=== PATIENT | male | born 1965 | race African-American/Black ===

== ENCOUNTER 2018-11-10 11:17 | Inpatient (IN) | payer OTHER, SELFPAY ==
[2018-11-10 13:48] VITALS: BMI 34.3
[2018-11-10] MEDS ORDERED: Acetaminophen 325 MG TAB PO PRN (13:55)
[2018-11-10] MEDS ORDERED: cloNIDine 0.1 MG TAB PO PRN (15:36)
[2018-11-10] MEDS ORDERED: Ipratropium Oral Inhaler (200 INHALATIONS) INH PRN (15:38)
[2018-11-10 16:25] LABS: Troponin I 0.229 ng/mL (< 0.028)
[2018-11-10] MEDS ORDERED: Lisinopril 20 MG TAB PO SCH (16:30)
[2018-11-10] MEDS ORDERED: Furosemide 40 MG/4 ML VIAL SLOW IVP SCH (19:45)
[2018-11-10 20:16] LABS: Troponin I 0.232 ng/mL (< 0.028)
--- NOTE | 2018-11-10 20:29 | CON ---
DATE OF CONSULT: 11/10/18 Patient is an unfortunate 53-year-old gentleman who presents with increasing dyspnea. He states that he has previously had a history of hypertension. Several years ago he was in [place] and developed congestive heart failure. He was on blood pressure medication for a while and lost a great deal of weight. He was doing well until recently when he noted increasing lower extremity swelling. He became progressively short of breath. He presented to the Emergency Room with marked dyspnea. The patient denied having any chest discomfort. PAST MEDICAL HISTORY: 1. Congestive heart failure. 2. Hypertension. 3. Dyslipidemia. PAST SURGICAL HISTORY: Knee surgery. SOCIAL HISTORY: She is a nonsmoker. FAMILY HISTORY: Positive family history of heart disease. Father with coronary artery disease. ALLERGIES: No known drug allergies. MEDICATIONS: None. REVIEW OF SYSTEMS: Ten point system otherwise unremarkable. No history of easy bruising or bleeding. PHYSICAL EXAMINATION: GENERAL: This is am obese gentleman in mild distress with a blood pressure of 149/101. NECK: Full. LUNGS: Crackles in both lung dozier. . HEART: Irregular rate and rhythm. Normal S1 and S2. ABDOMEN: Distended. EXTREMITIES: Severe bilateral edema. VASCULAR: Radial pulses are 2+. LABORATORY RESULTS: Hemoglobin 15.0, hematocrit 47.3, WBC 7.4, platelets 309. BNP 976. Sodium 144, potassium 4.4, chloride 110, bicarbonate 28, BUN 28, creatinine 0.9. EKG reveals normal sinus rhythm. Nonspecific ST abnormality. IMPRESSION: 1. Congestive heart failure. 2. Cardiomyopathy. 3. Dyslipidemia. 4. Obesity. This gentleman presents with new onset congestive heart failure. The patient has poorly controlled hypertension. The patient will be started on Coreg. Would also recommend the patient be placed on Entresto. The patient will be given Lasix and Spironolactone . An echocardiogram will be obtained. We will follow this patient with you through his hospitalization. [place]
[2018-11-10] MEDS ORDERED: Atorvastatin Calcium 20 MG TAB PO SCH (21:00)
--- NOTE | 2018-11-10 21:11 | HP ---
CHIEF COMPLAINT: Shortness of breath. HISTORY OF PRESENT ILLNESS: The patient is a very pleasant 53-year-old male with a remote history of hypertension about 3 years ago, currently not on any medication, who presented to the hospital with worsening shortness of breath. The patient stated that he has noted his symptoms have gradually gotten worse for the past few months. The patient stated that initially around July or August, he noticed that he was very dyspneic on exertion, which is not like himself. The patient attributed this to some weight gain over the holiday season. The patient stated that recently, about 2 weeks ago, he has been complaining of some nasal congestion with some cough, which he feels has just not gotten better. The patient denies any fevers or chills. He denies any nausea, vomiting, or diarrhea. However, the patient has noticed for the past couple of weeks, increased lower extremity edema and also shortness of breath on minimal exertion. The patient states that he normally sleeps in a chair that is at baseline. The patient's states that he also snores at times. The patient was supposed to be on antihypertensives; however, 3 years ago, he was very cautious about his diet and lost a significant amount of weight, which normalized his pressure. At this time, the patient took himself off the blood pressure medications. The patient stated that he had a stress test about 3 years ago in [place], which he was told it was negative. The patient comes in today with worsening shortness of breath on minimal exertion, also worsening lower extremity edema, which he normally never has. He is positive for PND, but negative for orthopnea. He has been taking [id number]-[id number] medications for his congestion that has been going on for the past 2 weeks. He also states that his appetite has decreased dramatically. He on minimal food intake, he feels very bloated and has not been eating very much for the past couple of weeks. PAST MEDICAL HISTORY: He has a history of hypertension, which he was on antihypertensives, but has not taken it for the past 3 years. PAST SURGICAL HISTORY: He had bilateral knee replacement. SOCIAL HISTORY: The patient denies any smoking or any occasional alcohol use. No drug use. The patient works and he is currently a full code. Lives with his family. ALLERGIES: HE HAS NO KNOWN DRUG ALLERGIES. MEDICATIONS: He takes none. FAMILY HISTORY: His father had a heart attack at the age of 60. REVIEW OF SYSTEMS: All negative except for the ones mentioned above in the HPI. PHYSICAL EXAMINATION: VITAL SIGNS: As of the following; temperature of 97.4, heart rate of 110, 94% on 2 L, and his blood pressure is 153/103. GENERAL: He is awake, alert, and oriented x3. Does not appear in distress. CV: S1 and S2 present. No murmurs, rubs, or gallops. LUNGS: Clear to auscultation. No rhonchi or wheezes noted. ABDOMEN: Obese. Bowel sounds are present x2. EXTREMITIES: Lower extremity edema, +2 lower extremity pitting edema. NEUROVASCULAR: Neurovascular-figueroa, no focal deficits noted. SKIN: No cuts, lesions, or bruises noted. HEENT: Normocephalic and atraumatic. No lymphadenopathy noted. Mucous membranes are moist. The pupils are equal and reactive to light. LABORATORY DATA: His laboratory results that was done at the outside hospital was as of the following; his white count was 7.4, hemoglobin of 15.0, hematocrit 47.3, and platelets were 309. His BNP was 976. His D-dimer was mildly elevated at 462 and the cutoff is 400. Sodium of 144, potassium of 4.4, creatinine 0.9, BUN of 14, and chloride of 110. Chest x-ray showed some mild pulmonary congestion. He did have an influenza swab at the other place; however, I do not have the results for that. ASSESSMENT AND PLAN: The patient is a very pleasant 53-year-old male, who presents to the hospital with worsening shortness of breath. 1. Shortness of breath. This could most likely be heart failure, unclear if it is diastolic versus systolic. We will order an echocardiogram for this patient. We will start the patient on some IV Lasix daily. We will consult Cardiology. Also, we will trend troponins. His EKG had some nonspecific T-wave changes to his lateral leads. However, the patient currently is not having any chest pain. 2. Hypertension, uncontrolled. His blood pressure is 153/103. We will put him on some antihypertensives and continue to monitor. 3. Obesity. I have educated him on weight loss and diet and exercise. 4. Deep venous thrombosis prophylaxis. We will put the patient on some sequential compression devices. Job ID: [id number]
[2018-11-11 00:21] LABS: Troponin I 0.268 ng/mL (< 0.028)
[2018-11-11] MEDS ORDERED: Benzonatate 100 MG CAP PO PRN (01:25)
[2018-11-11 05:13] LABS: #Basophils 0.1 thou/uL (0.0-0.2); #Monocytes 0.8 thou/uL (0.11-0.59); #Neutrophils 6.5 thou/uL (1.40-6.50); %Basophils 0.7 % (0.0-1.0); %Eosinophils 0.3 % (0.0-10.0); %Lymphocytes 21.2 % (21.0-51.0); %Monocytes 8.2 % (0.0-10.0); %Neutrophils 69.6 % (42.0-75.0); Mean Corpuscular HGB CONC 30.9 g/dL (32.0-36.0); Mean Corpuscular Hemoglobin 29.1 pg (27.0-31.0); Mean Corpuscular Volume 94.2 fL (78.0-98.0); Mean Platelet Volume 7.5 fL (7.4-10.4); Platelet Count 316 thou/uL (130-400); RBC Distribution Width 13.8 % (11.5-14.5); Red Blood Cell (RBC) Count 5.14 mill/uL (4.70-6.10); White Blood Cell (WBC) Count 9.3 thou/uL (4.8-10.8)
[2018-11-11 05:40] LABS: Anion Gap 13 mmol/L (10-20); BUN (Urea Nitrogen) 15 mg/dL (8.4-25.7); Calc. Creatinine Clearance 135 mL/min (70-130); Calcium 8.9 mg/dL (7.8-10.44); Carbon Dioxide 26 mmol/L (22-29); Cardiac Risk 8.1 (Less than 4.5); Chloride 104 mmol/L (98-107); Cholesterol 226 mg/dl (< 200 Desired); Estimated GFR-MDRD Greater than 90; Glucose 98 mg/dL (70-105); HDL Cholesterol 28 mg/dL (>60 Neg Risk); LDL Cholesterol, Calculated 176 mg/dL; Potassium 3.4 mmol/L (3.5-5.1); Sodium 140 mmol/L (136-145); Triglycerides 108 mg/dL (Less than 150)
[2018-11-11] MEDS: Furosemide 40 MG/4 ML VIAL SLOW IVP SCH ×2 (06:17→14:19)
[2018-11-11] MEDS ORDERED: Sodium Chloride 0.65% Nasal 44 ML BOT EA NARE PRN (07:31)
[2018-11-11] MEDS ORDERED: Senokot S 8.6-50 MG TAB PO PRN (07:31)
[2018-11-11] MEDS ORDERED: Loratadine 10 MG TAB PO PRN (07:31)
[2018-11-11] MEDS ORDERED: Cepastat Lozenges 1 LOZ PO PRN (07:31)
[2018-11-11] MEDS ORDERED: Loperamide HCl 2 MG CAP PO PRN (07:31)
[2018-11-11] MEDS ORDERED: hydrALAZINE 20 MG/ML VIAL SLOW IVP PRN (07:31)
[2018-11-11] MEDS ORDERED: Artificial Tears 18 DROP/0.9 ML EA EYE PRN (07:31)
[2018-11-11] MEDS ORDERED: Bisacodyl 10 MG SUPP PR PRN (07:31)
[2018-11-11] MEDS ORDERED: Eucerin (Mineral Oil/Petrolatum,White) 30 gm Jar TOP PRN (07:31)
[2018-11-11] MEDS ORDERED: Zolpidem Tartrate 5 MG TAB PO PRN (07:31)
[2018-11-11] MEDS ORDERED: Spironolactone 25 MG TAB PO SCH (08:00)
[2018-11-11] MEDS ORDERED: Enoxaparin Sodium 40 MG/0.4 ML SYRINGE SC SCH (09:00)
[2018-11-11] MEDS ORDERED: Furosemide 40 MG/4 ML VIAL SLOW IVP SCH (09:00)
[2018-11-11] MEDS ORDERED: Lisinopril 20 MG TAB PO SCH (09:00)
[2018-11-11] MEDS: Potassium Chloride 20 MEQ TAB PO SCH (09:27)
[2018-11-11] MEDS: Carvedilol 6.25 MG TAB PO SCH ×2 (09:27→16:51)
[2018-11-11] MEDS: Diabetic Tussin 200 MG/10 ML UDCUP PO PRN ×2 (09:28→23:32)
--- NOTE | 2018-11-11 10:07 | PDOC.PN ---
- Subjective Encounter Start Date: 11/11/18 Encounter Start Time: 07:50 -: old records requested/rev Patient seen and examined. No new complaints. No overnight events he feels less short of breath, edema is improving - Objective Resuscitation Status - Order Detail: 11/10/18 13:55 Resuscitation Status Routine Resuscitation Status: FULL: Full Resuscitation MAR Reviewed: Yes Vital Signs & Weight: Vital Signs (12 hours) Temp Pulse Resp BP Pulse Ox 11/11/18 03:29 97.5 F L 95 18 136/96 H 95 11/10/18 23:35 138/97 H Weight Weight 246 lb 4.8 oz I&O: 11/10/18 11/11/18 11/12/18 06:59 06:59 06:59 Intake Total 680 Output Total 2805 Balance -2125 Result Diagrams: 11/11/18 04:32 11/11/18 04:32 EKG Reviewed by me: Yes (nsr) Phys Exam - Physical Examination Constitutional: NAD HEENT: PERRLA, moist MMs, sclera anicteric Neck: supple Respiratory: no wheezing, no rhonchi basal rales Cardiovascular: RRR, no significant murmur, no rub Gastrointestinal: soft, non-tender, no distention, positive bowel sounds obesity+ Musculoskeletal: pulses present, edema present Neurological: non-focal, normal sensation, moves all 4 limbs Lymphatic: no nodes Psychiatric: normal affect, A&O x 3 Skin: no rash, normal turgor Dx/Plan (1) Acute CHF (congestive heart failure) Code(s): I50.9 - HEART FAILURE, UNSPECIFIED Status: Acute Qualifiers: Heart failure type: unspecified Qualified Code(s): I50.9 - Heart failure, unspecified Comment: echo is pending, new onset, suspecting systolic (2) Demand ischemia of myocardium Code(s): I24.8 - OTHER FORMS OF ACUTE ISCHEMIC HEART DISEASE Status: Acute (3) Hypokalemia Code(s): E87.6 - HYPOKALEMIA Status: Acute (4) Dyslipidemia Code(s): E78.5 - HYPERLIPIDEMIA, UNSPECIFIED Status: Chronic (5) Obesity (BMI 30-39.9) Code(s): E66.9 - OBESITY, UNSPECIFIED Status: Chronic - Plan cont current plan of care, plan discussed w/ family * echo pending * continue lasix * continue coreg * plan to start entresto as per cardiology * medication reviewed as below * symptomatic treatment * discussed with pt and and dietary, heart failure education given. * replace potassium * repeat labs tomorrow Review of Systems - Review of Systems Constitutional: negative: fever, chills, sweats, weakness, malaise, other ENT: negative: Ear Pain, Ear Discharge, Nose Pain, Nose Discharge, Nose Congestion, Mouth Pain, Mouth Swelling, Throat Pain, Throat Swelling, Other Respiratory: negative: Cough, Dry, Shortness of Breath, Hemoptysis, SOB with Excertion, Pleuritic Pain, Sputum, Wheezing Cardiovascular: orthopnea, edema. negative: chest pain, palpitations, paroxysmal nocturnal dyspnea, light headedness, other Gastrointestinal: negative: Nausea, Vomiting, Abdominal Pain, Diarrhea, Constipation, Melena, Hematochezia, Other Genitourinary: negative: Dysuria, Frequency, Incontinence, Hematuria, Retention , Other Musculoskeletal: negative: Neck Pain, Shoulder Pain, Arm Pain, Back Pain, Hand Pain, Leg Pain, Foot Pain, Other Skin: negative: Rash, Lesions, Osiel, Bruising, Other - Medications/Allergies Allergies/Adverse Reactions: Allergies Allergy/AdvReac Type Severity Reaction Status Date / Time No Known Allergies Allergy Unverified 11/10/18 14:43 Medications: Current Medications Acetaminophen (Tylenol) 650 mg PO Q4H PRN PRN Reason: Headache/Fever/Mild Pain (1-3) Artificial Tears (Tears Naturale) 2 drop EA EYE PRN PRN PRN Reason: Dry Eyes Aspirin (Aspirin Chewable) 81 mg PO DAILY [facility] Last Admin: 11/11/18 09:27 Dose: 81 mg Atorvastatin Calcium (Lipitor) 20 mg PO HS [facility] Last Admin: 11/10/18 20:34 Dose: 20 mg Benzonatate (Tessalon) 100 mg PO Q8H PRN PRN Reason: Cough Last Admin: 11/11/18 01:47 Dose: 100 mg Bisacodyl (Dulcolax) 10 mg [place] DAILYPRN PRN PRN Reason: Constipation Carvedilol (Coreg) 6.25 mg PO BID-[facility] Last Admin: 11/11/18 09:27 Dose: 6.25 mg Clonidine (Catapres) 0.1 mg PO BID PRN PRN Reason: Blood Pressure Last Admin: 11/10/18 18:06 Dose: 0.1 mg Enoxaparin Sodium (Lovenox) 40 mg SC 0900 [facility] Last Admin: 11/11/18 09:28 Dose: 40 mg Furosemide (Lasix) 40 mg SLOW IVP 0600,1400 [facility] Last Admin: 11/11/18 06:17 Dose: 40 mg Guaifenesin (Robitussin Sf) 200 mg PO Q4H PRN PRN Reason: Cough Last Admin: 11/11/18 09:28 Dose: 200 mg Hydralazine HCl (Apresoline) 10 mg SLOW IVP Q4H PRN PRN Reason: SBP > 180 and HR < 70 Ipratropium [place] (Atrovent Hfa) 1 puff INH QID-RT PRN PRN Reason: Wheezing or Cough Loperamide HCl (Imodium) 2 mg PO PRN PRN PRN Reason: Diarrhea/Loose Stools Loratadine (Claritin) 10 mg PO DAILYPRN PRN PRN Reason: Sinus Symptoms Mineral Oil/White Petrolatum (Eucerin Cream) 0 gm TOP BIDPRN PRN PRN Reason: Dry Skin Potassium Chloride (K-Dur) 20 meq PO [facility] Last Admin: 11/11/18 09:27 Dose: 20 meq Senna/Docusate Sodium (Senokot S) 2 tab PO BID PRN PRN Reason: Constipation Sodium Chloride ([place] Nasal [place] 0.65%) 0 ml EA NARE QIDPRN PRN PRN Reason: Nasal Congestion Spironolactone (Aldactone) 25 mg PO [facility] Last Admin: 11/11/18 09:27 Dose: 25 mg Throat Lozenges (Cepastat Lozenges) 1 rm PO Q2H PRN PRN Reason: Sore Throat Zolpidem Tartrate (Ambien) 5 mg PO HSPRN PRN PRN Reason: Insomnia
[2018-11-11 11:50] LABS: Bilirubin Negative (Negative); Blood, Urine Negative (Negative); Clarity CLEAR (Clear); Glucose, Urine (Dipstick) Negative (Negative); Leukocyte Negative (Negative); Nitrite Negative (Negative); Protein, Urine (Dipstick) Negative (Neg-Trace); Specific Gravity, Urine 1.009 (1.002-1.036); Urobilinogen 0.2 mg/dL (0.2-1.0); pH, Urine 5.5 (5.0-9.0)
[2018-11-11 11:53] LABS: Bacteria/HPF None Seen HPF (None Seen); Hyaline Casts/LPF 4-6 HYALINE CAST LPF (0-3 Hyaline); RBC/HPF 0-3 HPF (0-3); Squamous Epithelial 0-3 HPF (0-3); WBC/HPF 0-3 HPF (0-3)
[2018-11-11] MEDS ORDERED: Communication Order-Pharmacy FS SCH (17:45)
[2018-11-11] MEDS: Atorvastatin Calcium 40 MG TAB PO SCH (20:34)
[2018-11-12 05:11] LABS: Anion Gap 12 mmol/L (10-20); BUN (Urea Nitrogen) 21 mg/dL (8.4-25.7); Calc. Creatinine Clearance 124 mL/min (70-130); Calcium 8.9 mg/dL (7.8-10.44); Carbon Dioxide 29 mmol/L (22-29); Chloride 105 mmol/L (98-107); Estimated GFR-MDRD 88; Glucose 97 mg/dL (70-105); Magnesium 2.3 mg/dL (1.6-2.6); Potassium 3.5 mmol/L (3.5-5.1); Sodium 142 mmol/L (136-145); Uric Acid 11.8 mg/dL (3.5-7.2)
[2018-11-12] MEDS: Furosemide 40 MG/4 ML VIAL SLOW IVP SCH ×2 (05:56→14:44)
[2018-11-12] MEDS: Carvedilol 6.25 MG TAB PO SCH ×2 (05:56→17:19)
[2018-11-12] MEDS: Spironolactone 25 MG TAB PO SCH ×2 (05:56→14:44)
[2018-11-12] MEDS: Potassium Chloride 20 MEQ TAB PO SCH (05:57)
--- NOTE | 2018-11-12 10:38 | PDOC.PN ---
- Subjective Encounter Start Date: 11/12/18 Encounter Start Time: 08:00 Patient seen and examined. No new complaints. No overnight events edema leg improving, less dyspnea, no chest pain, - Objective Resuscitation Status - Order Detail: 11/10/18 13:55 Resuscitation Status Routine Resuscitation Status: FULL: Full Resuscitation MAR Reviewed: Yes Vital Signs & Weight: Vital Signs (12 hours) Temp Pulse Resp BP BP Pulse Ox 11/12/18 08:50 99.1 F 97 18 111/79 97 11/12/18 05:56 134/90 11/12/18 03:31 97.8 F 90 20 134/90 98 Weight Weight 249 lb 9.6 oz I&O: 11/11/18 11/12/18 11/13/18 06:59 06:59 06:59 Intake Total 680 200 Output Total 2805 Balance -2125 200 Result Diagrams: 11/11/18 04:32 11/12/18 04:20 Radiology Reviewed by me: Yes (echo report noted) EKG Reviewed by me: Yes (nsr) Phys Exam - Physical Examination Constitutional: NAD HEENT: PERRLA, moist MMs, sclera anicteric Neck: supple Respiratory: no wheezing, no rhonchi few rales at base Cardiovascular: RRR, no significant murmur, no rub Gastrointestinal: soft, non-tender, no distention, positive bowel sounds Musculoskeletal: pulses present, edema present Neurological: non-focal, normal sensation, moves all 4 limbs Lymphatic: no nodes Psychiatric: normal affect, A&O x 3 Skin: no rash, normal turgor Dx/Plan (1) Acute systolic ACC/AHA stage C congestive heart failure Code(s): I50.21 - ACUTE SYSTOLIC (CONGESTIVE) HEART FAILURE Status: Acute (2) Demand ischemia of myocardium Code(s): I24.8 - OTHER FORMS OF ACUTE ISCHEMIC HEART DISEASE Status: Acute (3) Hypokalemia Code(s): E87.6 - HYPOKALEMIA Status: Acute (4) Dyslipidemia Code(s): E78.5 - HYPERLIPIDEMIA, UNSPECIFIED Status: Chronic (5) Obesity (BMI 30-39.9) Code(s): E66.9 - OBESITY, UNSPECIFIED Status: Chronic (6) Hyperuricemia Code(s): E79.0 - HYPERURICEMIA W/O SIGNS OF INFLAM ARTHRIT AND TOPHACEOUS DIS Status: Acute - Plan cont current plan of care, plan discussed w/ family * continue lasix * cardiology following * plan for cardiac cath today * medication reviewed as below * symptomatic treatment * start allopurinol * discussed with bedside. * may need lifevest on discharge Review of Systems - Review of Systems ENT: negative: Ear Pain, Ear Discharge, Nose Pain, Nose Discharge, Nose Congestion, Mouth Pain, Mouth Swelling, Throat Pain, Throat Swelling, Other Respiratory: negative: Cough, Dry, Shortness of Breath, Hemoptysis, SOB with Excertion, Pleuritic Pain, Sputum, Wheezing Cardiovascular: orthopnea, edema. negative: chest pain, palpitations, paroxysmal nocturnal dyspnea, light headedness, other Gastrointestinal: negative: Nausea, Vomiting, Abdominal Pain, Diarrhea, Constipation, Melena, Hematochezia, Other Genitourinary: negative: Dysuria, Frequency, Incontinence, Hematuria, Retention , Other Musculoskeletal: negative: Neck Pain, Shoulder Pain, Arm Pain, Back Pain, Hand Pain, Leg Pain, Foot Pain, Other Skin: negative: Rash, Lesions, Osiel, Bruising, Other - Medications/Allergies Allergies/Adverse Reactions: Allergies Allergy/AdvReac Type Severity Reaction Status Date / Time No Known Allergies Allergy Unverified 11/10/18 14:43 Medications: Current Medications Acetaminophen (Tylenol) 650 mg PO Q4H PRN PRN Reason: Headache/Fever/Mild Pain (1-3) Allopurinol (Zyloprim) 100 mg PO DAILY [facility] Artificial Tears (Tears Naturale) 2 drop EA EYE PRN PRN PRN Reason: Dry Eyes Aspirin (Aspirin Chewable) 81 mg PO DAILY [facility] Last Admin: 11/12/18 05:57 Dose: Not Given Atorvastatin Calcium (Lipitor) 40 mg PO HS [facility] Last Admin: 11/11/18 20:34 Dose: 40 mg Benzonatate (Tessalon) 100 mg PO Q8H PRN PRN Reason: Cough Last Admin: 11/11/18 01:47 Dose: 100 mg Bisacodyl (Dulcolax) 10 mg [place] DAILYPRN PRN PRN Reason: Constipation Carvedilol (Coreg) 6.25 mg PO BID-[facility] Last Admin: 11/12/18 05:56 Dose: 6.25 mg Clonidine (Catapres) 0.1 mg PO BID PRN PRN Reason: Blood Pressure Last Admin: 11/10/18 18:06 Dose: 0.1 mg Furosemide (Lasix) 40 mg SLOW IVP 0600,1400 [facility] Last Admin: 11/12/18 05:56 Dose: 40 mg Guaifenesin (Robitussin Sf) 200 mg PO Q4H PRN PRN Reason: Cough Last Admin: 11/11/18 23:32 Dose: 200 mg Hydralazine HCl (Apresoline) 10 mg SLOW IVP Q4H PRN PRN Reason: SBP > 180 and HR < 70 Ipratropium [place] (Atrovent Hfa) 1 puff INH QID-RT PRN PRN Reason: Wheezing or Cough Loperamide HCl (Imodium) 2 mg PO PRN PRN PRN Reason: Diarrhea/Loose Stools Loratadine (Claritin) 10 mg PO DAILYPRN PRN PRN Reason: Sinus Symptoms Mineral Oil/White Petrolatum (Eucerin Cream) 0 gm TOP BIDPRN PRN PRN Reason: Dry Skin Potassium Chloride (K-Dur) 20 meq [facility] Last Admin: 11/12/18 05:57 Dose: 20 meq Senna/Docusate Sodium (Senokot S) 2 tab PO BID PRN PRN Reason: Constipation Sodium Chloride ([place] Nasal [place] 0.65%) 0 ml EA NARE QIDPRN PRN PRN Reason: Nasal Congestion Spironolactone (Aldactone) 50 mg PO [facility] Last Admin: 11/12/18 05:56 Dose: 50 mg Throat Lozenges (Cepastat Lozenges) 1 rm PO Q2H PRN PRN Reason: Sore Throat Zolpidem Tartrate (Ambien) 5 mg PO HSPRN PRN PRN Reason: Insomnia
[2018-11-12] MEDS ORDERED: Midazolam HCl 2 mg/2 ml Vial ONE (11:22)
[2018-11-12] MEDS ORDERED: traMADol HCl 50 MG TAB PO PRN (11:46)
[2018-11-12] MEDS ORDERED: Acetaminophen/Codeine 30-300mg Tablet PO PRN ×2 (11:46)
[2018-11-12] MEDS ORDERED: Nitroglycerin 0.4 MG TAB (25 Tab Bottle) SL PRN (11:46)
[2018-11-12] MEDS ORDERED: Sodium Chloride 0.9% 200 ML IV PRN (12:00)
[2018-11-12] MEDS: Allopurinol 100 MG TAB PO SCH (14:44)
[2018-11-12] MEDS ORDERED: Iopamidol 370 76% 50 ML VIAL FS ONE (15:08)
[2018-11-12] MEDS ORDERED: Iopamidol 370 76% 100 ML VIAL ONE (15:08)
[2018-11-12] MEDS: Atorvastatin Calcium 40 MG TAB PO SCH (20:27)
[2018-11-12] MEDS: Sacubitril 24.5 MG/Valsartan 25.5 MG TABLET PO SCH (20:28)
--- NOTE | 2018-11-12 22:30 | CON ---
DATE OF CONSULTATION: HISTORY OF PRESENT ILLNESS: This is a 53-year-old gentleman with a history of untreated hypertension, who has had several months history of dyspnea on exertion and more recently of edematous legs and sleeping in a chair. He was found to have a BNP of about 800-1500 and bilateral lower extremity edema. Cardiac echo showed EF of 10% to 15% and cardiac cath today showed a 70% to 80% stenosis of the mid LAD with 90% diagonal lesions and the diagonals being rather small vessels. Circumflex consisted of couple of obtuse marginals, which were normal and the main right coronary artery had mild disease and the PDA was small with a mid stenosis. PAST SURGICAL HISTORY: Bilateral knee replacement. SOCIAL HISTORY: Nonsmoker. Accompanied by multiple family members. He does have a history of hypertension and dyslipidemia. Nonsmoker. Works for the [employer]. PHYSICAL EXAMINATION: GENERAL: Alert, cooperative gentleman. VITAL SIGNS: Weight about 250 pounds. Height 5 feet 10 inches. NECK: No carotid bruits. CARDIAC: Regular rate and rhythm. No murmurs. LUNGS: Bilateral expiratory wheezes. ABDOMEN: Soft, nontender. Mildly obese. EXTREMITIES: He has trace peripheral edema at this time with a palpable right posterior tibial pulse, absent pedal pulses on the left foot. IMAGING: The patient's EKG shows poor R-wave progression. The patient with severe LV dysfunction, congestive heart failure and LAD disease and mid PDA disease. The patient is not a surgical candidate at this time. Consideration could be given to percutaneous intervention for his LAD disease down the road, if his ejection fraction improves with medical therapy. Surgical targets would primarily be the LAD, and I think the diagonal branches were to be too small to graft and the distal PDA is also too small to graft. Job ID: [id number]
[2018-11-13 05:43] LABS: Anion Gap 13 mmol/L (10-20); BUN (Urea Nitrogen) 16 mg/dL (8.4-25.7); Calc. Creatinine Clearance 155 mL/min (70-130); Calcium 8.7 mg/dL (7.8-10.44); Carbon Dioxide 28 mmol/L (22-29); Chloride 105 mmol/L (98-107); Estimated GFR-MDRD Greater than 90; Glucose 94 mg/dL (70-105); Potassium 3.5 mmol/L (3.5-5.1); Sodium 142 mmol/L (136-145)
[2018-11-13] MEDS: Furosemide 40 MG/4 ML VIAL SLOW IVP SCH ×2 (06:21→14:06)
[2018-11-13] MEDS: Potassium Chloride 20 MEQ TAB PO SCH (08:10)
[2018-11-13] MEDS: Carvedilol 6.25 MG TAB PO SCH ×2 (08:10→16:15)
[2018-11-13] MEDS: Allopurinol 100 MG TAB PO SCH (08:10)
[2018-11-13] MEDS: Sacubitril 24.5 MG/Valsartan 25.5 MG TABLET PO SCH (08:12)
--- NOTE | 2018-11-13 10:47 | PDOC.PN ---
- Subjective Encounter Start Date: 11/13/18 Encounter Start Time: 08:30 -: old records requested/rev Patient seen and examined. No new complaints. No overnight events - Objective Resuscitation Status - Order Detail: 11/10/18 13:55 Resuscitation Status Routine Resuscitation Status: FULL: Full Resuscitation MAR Reviewed: Yes Vital Signs & Weight: Vital Signs (12 hours) Temp Pulse Resp BP Pulse Ox 11/13/18 08:00 98.0 F 86 17 114/83 97 11/13/18 04:42 98.1 F 90 20 115/84 96 Weight Weight 236 lb 9.6 oz I&O: 11/12/18 11/13/18 11/14/18 06:59 06:59 06:59 Intake Total 200 1128 Output Total 1980 Balance 200 -852 Result Diagrams: 11/11/18 04:32 11/13/18 04:33 EKG Reviewed by me: Yes (nsr) Phys Exam - Physical Examination Constitutional: NAD HEENT: PERRLA, moist MMs, sclera anicteric Neck: no JVD, supple Respiratory: no wheezing, no rales, no rhonchi Cardiovascular: RRR, no significant murmur, no rub Gastrointestinal: soft, non-tender, no distention, positive bowel sounds Musculoskeletal: no edema, pulses present Neurological: non-focal, normal sensation, moves all 4 limbs Lymphatic: no nodes Psychiatric: normal affect, A&O x 3 Skin: no rash, normal turgor Dx/Plan (1) Acute systolic ACC/AHA stage C congestive heart failure Code(s): I50.21 - ACUTE SYSTOLIC (CONGESTIVE) HEART FAILURE Status: Acute (2) Demand ischemia of myocardium Code(s): I24.8 - OTHER FORMS OF ACUTE ISCHEMIC HEART DISEASE Status: Acute (3) Hypokalemia Code(s): E87.6 - HYPOKALEMIA Status: Acute (4) Dyslipidemia Code(s): E78.5 - HYPERLIPIDEMIA, UNSPECIFIED Status: Chronic (5) Obesity (BMI 30-39.9) Code(s): E66.9 - OBESITY, UNSPECIFIED Status: Chronic (6) Hyperuricemia Code(s): E79.0 - HYPERURICEMIA W/O SIGNS OF INFLAM ARTHRIT AND TOPHACEOUS DIS Status: Acute (7) CAD (coronary artery disease) Code(s): I25.10 - ATHSCL HEART DISEASE OF [place] CORONARY ARTERY W/O ANG PCTRS Status: Acute (8) Ischemic cardiomyopathy Code(s): I25.5 - ISCHEMIC CARDIOMYOPATHY Status: Acute - Plan cont current plan of care, plan discussed w/ family * he is not a candidate for cabg at this time as per cv surgery * medication reviewed as below * symptomatic treatment * will optimize medical therapy * discussed with * will need life vest. * continue entresto, coreg, lasix, aldactone, asa, lipitor Review of Systems - Review of Systems ENT: negative: Ear Pain, Ear Discharge, Nose Pain, Nose Discharge, Nose Congestion, Mouth Pain, Mouth Swelling, Throat Pain, Throat Swelling, Other Respiratory: negative: Cough, Dry, Shortness of Breath, Hemoptysis, SOB with Excertion, Pleuritic Pain, Sputum, Wheezing Cardiovascular: negative: chest pain, palpitations, orthopnea, paroxysmal nocturnal dyspnea, edema, light headedness, other Gastrointestinal: negative: Nausea, Vomiting, Abdominal Pain, Diarrhea, Constipation, Melena, Hematochezia, Other Genitourinary: negative: Dysuria, Frequency, Incontinence, Hematuria, Retention , Other Musculoskeletal: negative: Neck Pain, Shoulder Pain, Arm Pain, Back Pain, Hand Pain, Leg Pain, Foot Pain, Other - Medications/Allergies Allergies/Adverse Reactions: Allergies Allergy/AdvReac Type Severity Reaction Status Date / Time No Known Allergies Allergy Unverified 11/10/18 14:43 Medications: Current Medications Acetaminophen (Tylenol) 650 mg PO Q4H PRN PRN Reason: Headache/Fever/Mild Pain (1-3) Acetaminophen/Codeine Phosphate (Tylenol #3) 1 tab PO Q4H PRN PRN Reason: Mild Pain (1-3) Acetaminophen/Codeine Phosphate (Tylenol #3) 2 tab PO Q4H PRN PRN Reason: Moderate Pain (4-6) Allopurinol (Zyloprim) 100 mg PO DAILY [facility] Last Admin: 11/13/18 08:10 Dose: 100 mg Artificial Tears (Tears Naturale) 2 drop EA EYE PRN PRN PRN Reason: Dry Eyes Aspirin (Aspirin Chewable) 81 mg PO DAILY [facility] Last Admin: 11/13/18 08:10 Dose: 81 mg Atorvastatin Calcium (Lipitor) 40 mg PO HS [facility] Last Admin: 11/12/18 20:27 Dose: 40 mg Benzonatate (Tessalon) 100 mg PO Q8H PRN PRN Reason: Cough Last Admin: 11/11/18 01:47 Dose: 100 mg Bisacodyl (Dulcolax) 10 mg IN DAILYPRN PRN PRN Reason: Constipation Carvedilol (Coreg) 6.25 mg PO BID-[facility] Last Admin: 11/13/18 08:10 Dose: 6.25 mg Clonidine (Catapres) 0.1 mg PO BID PRN PRN Reason: Blood Pressure Last Admin: 11/10/18 18:06 Dose: 0.1 mg Furosemide (Lasix) 40 mg SLOW IVP 0600,1400 [facility] Last Admin: 11/13/18 06:21 Dose: 40 mg Guaifenesin (Robitussin Sf) 200 mg PO Q4H PRN PRN Reason: Cough Last Admin: 11/11/18 23:32 Dose: 200 mg Hydralazine HCl (Apresoline) 10 mg SLOW IVP Q4H PRN PRN Reason: SBP > 180 and HR < 70 Sodium Chloride (Normal Saline 0.9%) 200 mls @ 0 mls/hr IV ONE PRN PRN Reason: Bolus PRN SBP < 90 mm Hg Stop: 11/15/18 12:01 Ipratropium Elim (Atrovent Hfa) 1 puff INH QID-RT PRN PRN Reason: Wheezing or Cough Loperamide HCl (Imodium) 2 mg PO PRN PRN PRN Reason: Diarrhea/Loose Stools Loratadine (Claritin) 10 mg PO DAILYPRN PRN PRN Reason: Sinus Symptoms Mineral Oil/White Petrolatum (Eucerin Cream) 0 gm TOP BIDPRN PRN PRN Reason: Dry Skin Nitroglycerin (Nitrostat) 0.4 mg SL Q5MIN PRN PRN Reason: Chest Pain Potassium Chloride (K-Dur) 20 meq PO QAM-[facility] Last Admin: 11/13/18 08:10 Dose: 20 meq Sacubitril/Valsartan (Entresto 49 Mg-51 Mg Tablet) 1 tab PO BID [facility] Senna/Docusate Sodium (Senokot S) 2 tab PO BID PRN PRN Reason: Constipation Sodium Chloride ([place] Nasal [place] 0.65%) 0 ml EA NARE QIDPRN PRN PRN Reason: Nasal Congestion Sodium Chloride (Flush - Normal Saline) 10 ml IVF Q12HR [facility] Last Admin: 11/12/18 20:30 Dose: 10 ml Sodium Chloride (Flush - Normal Saline) 10 ml IVF PRN PRN PRN Reason: Saline Flush Spironolactone (Aldactone) 50 mg PO QAM-WM [facility] Last Admin: 11/12/18 14:44 Dose: 50 mg Throat Lozenges (Cepastat Lozenges) 1 rm PO Q2H PRN PRN Reason: Sore Throat Tramadol HCl (Ultram) 50 mg PO Q6H PRN PRN Reason: Moderate Pain (4-6) Zolpidem Tartrate (Ambien) 5 mg PO HSPRN PRN PRN Reason: Insomnia
[2018-11-13] MEDS: Sacubitril 49 MG/Valsartan 51 MG TABLET PO SCH ×3 (11:08→21:15)
[2018-11-13] MEDS ORDERED: Furosemide 100 MG/10 ML VIAL SLOW IVP SCH (16:45)
[2018-11-13] MEDS: Atorvastatin Calcium 40 MG TAB PO SCH (21:15)
[2018-11-14] MEDS: Furosemide 40 MG/4 ML VIAL SLOW IVP SCH (06:25)
[2018-11-14 07:42] LABS: Anion Gap 14 mmol/L (10-20); BUN (Urea Nitrogen) 16 mg/dL (8.4-25.7); Calc. Creatinine Clearance 119 mL/min (70-130); Calcium 9.2 mg/dL (7.8-10.44); Carbon Dioxide 31 mmol/L (22-29); Chloride 101 mmol/L (98-107); Estimated GFR-MDRD 88; Glucose 103 mg/dL (70-105); Potassium 3.4 mmol/L (3.5-5.1); Sodium 143 mmol/L (136-145)
[2018-11-14] MEDS: Carvedilol 6.25 MG TAB PO SCH ×2 (09:15→18:12)
[2018-11-14] MEDS: Spironolactone 25 MG TAB PO SCH (09:15)
[2018-11-14] MEDS: Allopurinol 100 MG TAB PO SCH (09:15)
[2018-11-14] MEDS: Potassium Chloride 20 MEQ TAB PO SCH (09:15)
--- NOTE | 2018-11-14 12:35 | PDOC.PN ---
- Subjective Encounter Start Date: 11/14/18 Encounter Start Time: 09:30 Patient seen and examined. No new complaints. No overnight events last night his oxygen saturation was low, but this morning saturation is normal at ear - Objective Resuscitation Status - Order Detail: 11/10/18 13:55 Resuscitation Status Routine Resuscitation Status: FULL: Full Resuscitation MAR Reviewed: Yes Vital Signs & Weight: Vital Signs (12 hours) Temp Pulse Pulse Pulse Resp BP BP 11/14/18 10:30 94 85 109/77 110/83 11/14/18 08:00 97.2 F L 84 18 11/14/18 04:00 97.7 F 80 20 BP Pulse Ox Pulse Ox 11/14/18 10:30 95 11/14/18 08:00 110/83 100 11/14/18 04:00 112/61 92 L Weight Weight 235 lb 14.4 oz I&O: 11/13/18 11/14/18 11/15/18 06:59 06:59 06:59 Intake Total 1128 360 Output Total 1980 1650 Balance -852 -1290 Result Diagrams: 11/11/18 04:32 11/14/18 06:45 EKG Reviewed by me: Yes (nsr) Phys Exam - Physical Examination Constitutional: NAD HEENT: PERRLA, moist MMs, sclera anicteric Neck: no JVD, supple Respiratory: no wheezing, no rales, no rhonchi Cardiovascular: RRR, no significant murmur, no rub Gastrointestinal: soft, non-tender, no distention, positive bowel sounds Musculoskeletal: no edema, pulses present Neurological: non-focal, normal sensation Lymphatic: no nodes Psychiatric: normal affect, A&O x 3 Skin: no rash, normal turgor Dx/Plan (1) Acute systolic ACC/AHA stage C congestive heart failure Code(s): I50.21 - ACUTE SYSTOLIC (CONGESTIVE) HEART FAILURE Status: Acute (2) Demand ischemia of myocardium Code(s): I24.8 - OTHER FORMS OF ACUTE ISCHEMIC HEART DISEASE Status: Acute (3) Hypokalemia Code(s): E87.6 - HYPOKALEMIA Status: Acute (4) Dyslipidemia Code(s): E78.5 - HYPERLIPIDEMIA, UNSPECIFIED Status: Chronic (5) Obesity (BMI 30-39.9) Code(s): E66.9 - OBESITY, UNSPECIFIED Status: Chronic (6) Hyperuricemia Code(s): E79.0 - HYPERURICEMIA W/O SIGNS OF INFLAM ARTHRIT AND TOPHACEOUS DIS Status: Acute (7) CAD (coronary artery disease) Code(s): I25.10 - ATHSCL HEART DISEASE OF [place] CORONARY ARTERY W/O ANG PCTRS Status: Acute (8) Ischemic cardiomyopathy Code(s): I25.5 - ISCHEMIC CARDIOMYOPATHY Status: Acute - Plan cont current plan of care, plan discussed w/ family * medication reviewed as below * symptomatic treatment * pulmonary consulted for suspected breann * will ask cardiology to decide about ACEI or ARB or entresto. * life vest arranged Review of Systems - Review of Systems ENT: negative: Ear Pain, Ear Discharge, Nose Pain, Nose Discharge, Nose Congestion, Mouth Pain, Mouth Swelling, Throat Pain, Throat Swelling, Other Respiratory: negative: Cough, Dry, Shortness of Breath, Hemoptysis, SOB with Excertion, Pleuritic Pain, Sputum, Wheezing Cardiovascular: negative: chest pain, palpitations, orthopnea, paroxysmal nocturnal dyspnea, edema, light headedness, other Gastrointestinal: negative: Nausea, Vomiting, Abdominal Pain, Diarrhea, Constipation, Melena, Hematochezia, Other Genitourinary: negative: Dysuria, Frequency, Incontinence, Hematuria, Retention , Other Musculoskeletal: negative: Neck Pain, Shoulder Pain, Arm Pain, Back Pain, Hand Pain, Leg Pain, Foot Pain, Other Skin: negative: Rash, Lesions, [place], Bruising, Other - Medications/Allergies Allergies/Adverse Reactions: Allergies Allergy/AdvReac Type Severity Reaction Status Date / Time No Known Allergies Allergy Unverified 11/10/18 14:43 Medications: Current Medications Acetaminophen (Tylenol) 650 mg PO Q4H PRN PRN Reason: Headache/Fever/Mild Pain (1-3) Acetaminophen/Codeine Phosphate (Tylenol #3) 1 tab PO Q4H PRN PRN Reason: Mild Pain (1-3) Acetaminophen/Codeine Phosphate (Tylenol #3) 2 tab PO Q4H PRN PRN Reason: Moderate Pain (4-6) Allopurinol (Zyloprim) 100 mg PO DAILY [facility] Last Admin: 11/14/18 09:15 Dose: 100 mg Artificial Tears (Tears Naturale) 2 drop EA EYE PRN PRN PRN Reason: Dry Eyes Aspirin (Aspirin Chewable) 81 mg PO DAILY [facility] Last Admin: 11/14/18 09:15 Dose: 81 mg Atorvastatin Calcium (Lipitor) 40 mg PO HS [facility] Last Admin: 11/13/18 21:15 Dose: 40 mg Benzonatate (Tessalon) 100 mg PO Q8H PRN PRN Reason: Cough Last Admin: 11/11/18 01:47 Dose: 100 mg Bisacodyl (Dulcolax) 10 mg [place] DAILYPRN PRN PRN Reason: Constipation Carvedilol (Coreg) 6.25 mg PO BID-[facility] Last Admin: 11/14/18 09:15 Dose: 6.25 mg Furosemide (Lasix) 40 mg PO DAILY [facility] Guaifenesin (Robitussin Sf) 200 mg PO Q4H PRN PRN Reason: Cough Last Admin: 11/11/18 23:32 Dose: 200 mg Hydralazine HCl (Apresoline) 10 mg SLOW IVP Q4H PRN PRN Reason: SBP > 180 and HR < 70 Sodium Chloride (Normal Saline 0.9%) 200 mls @ 0 mls/hr IV ONE PRN PRN Reason: Bolus PRN SBP < 90 mm Hg Stop: 11/15/18 12:01 Ipratropium [place] (Atrovent Hfa) 1 puff INH QID-RT PRN PRN Reason: Wheezing or Cough Loperamide HCl (Imodium) 2 mg PO PRN PRN PRN Reason: Diarrhea/Loose Stools Loratadine (Claritin) 10 mg PO DAILYPRN PRN PRN Reason: Sinus Symptoms Mineral Oil/White Petrolatum (Eucerin Cream) 0 gm TOP BIDPRN PRN PRN Reason: Dry Skin Nitroglycerin (Nitrostat) 0.4 mg SL Q5MIN PRN PRN Reason: Chest Pain Potassium Chloride (K-Dur) 20 meq PO QAM-[facility] Last Admin: 11/14/18 09:15 Dose: 20 meq Senna/Docusate Sodium (Senokot S) 2 tab PO BID PRN PRN Reason: Constipation Sodium Chloride ([place] Nasal [place] 0.65%) 0 ml EA NARE QIDPRN PRN PRN Reason: Nasal Congestion Sodium Chloride (Flush - Normal Saline) 10 ml IVF Q12HR [facility] Last Admin: 11/14/18 09:16 Dose: 10 ml Sodium Chloride (Flush - Normal Saline) 10 ml IVF PRN PRN PRN Reason: Saline Flush Last Admin: 11/13/18 14:07 Dose: 10 ml Spironolactone (Aldactone) 50 mg PO QA-[facility] Last Admin: 11/14/18 09:15 Dose: 50 mg Throat Lozenges (Cepastat Lozenges) 1 rm PO Q2H PRN PRN Reason: Sore Throat Tramadol HCl (Ultram) 50 mg PO Q6H PRN PRN Reason: Moderate Pain (4-6) Zolpidem Tartrate (Ambien) 5 mg PO HSPRN PRN PRN Reason: Insomnia
[2018-11-14 16:38] VITALS: TEMP 96.2
[2018-11-14] MEDS ORDERED: Sacubitril 49 MG/Valsartan 51 MG TABLET PO SCH (17:30)
--- NOTE | 2018-11-14 18:07 | CON ---
DATE OF CONSULTATION: 11/14/2018 CONSULTING PHYSICIAN: Dr. Wolf. REASON FOR CONSULTATION: Nocturnal hypoxemia. HISTORY OF PRESENT ILLNESS: Mr. Beebe is a pleasant 53-year-old male, who was hospitalized at this facility on 11/10/2018 by the hospitalist group with increasing shortness of breath. Symptoms have been increasing over the last couple months. He was found to have a cardiomyopathy with EF of 10% to 15% with an increased LV size. He underwent cardiac catheterization. He was found to have 70% to 80% stenosis in the mid LAD and 90% diagonal lesion. At the current time, he is not being considered for bypass surgery because he is felt to be a prohibitive risk. Last night, he was noted to have severe nocturnal hypoxemia with O2 saturation down in to the 70% range. The patient's tells me that he does have apneic spells at night. He also snores heavily. He is a plant operator/shift supervisor worker, who sleeps during the day and does not change his sleep habits on his days off. He works doing commercial delivery but says he does not fall asleep while driving. He does not take any type of sleep inducing medication. PAST MEDICAL HISTORY: Hypertension. PAST SURGICAL HISTORY: Bilateral knee replacement. SOCIAL HISTORY: Nonsmoker. Does not consume alcohol. Does not use illicit drugs. ALLERGIES: NONE. FAMILY MEDICAL HISTORY: Remarkable for coronary artery disease. REVIEW OF SYSTEMS: Otherwise negative. CURRENT MEDICATIONS: His list is in the chart and include; 1. Allopurinol. 2. Lipitor. 3. Coreg. 4. Lasix. 5. Imodium. 6. Claritin. 7. Aldactone. PHYSICAL EXAMINATION: VITAL SIGNS: Temperature 97.2, pulse 84, respirations 18, and O2 saturations 100% on room air. HEENT: Exam is remarkable for class 3 Mallampati airway. NECK: No adenopathy or JVD. LUNGS: Clear. He has a vest on. CARDIAC: S1 and S2 regular. ABDOMEN: Soft. EXTREMITIES: No edema. LABORATORY DATA: White blood cell count 9.3, hematocrit 48.4, and platelet count 316. Sodium 143, potassium 3.4, chloride 101, CO2 of 31, BUN 16, creatinine 1.0, and glucose 103. ASSESSMENT: 1. Ischemic cardiomyopathy. 2. Nocturnal hypoxemia, which may be secondary to either central sleep apnea or obstructive sleep apnea. 3. Grossly depressed ejection fraction. RECOMMENDATIONS: If the report of O2 saturations down to the 70s is accurate, then this patient needs nocturnal oxygen. This is to bridge the gap between hospital discharge and getting a sleep study done. He will need a sleep study done in the lab as an outpatient to determine whether or not he has central or obstructive sleep apnea. I will be happy to follow up in office after discharge. Job ID: [id number]
--- NOTE | 2018-11-14 18:56 | DIS ---
DATE OF ADMISSION: 11/10/2018 DATE OF DISCHARGE: 11/14/2018 PRIMARY CARE PHYSICIAN: [facility] [place]. DISCHARGE DISPOSITION: Home. PRIMARY DISCHARGE DIAGNOSES: Ischemic cardiomyopathy, acute systolic congestive heart failure stage C, 3-vessel coronary artery disease, demand ischemia of myocardium, hypokalemia, and hyperuricemia. SECONDARY DISCHARGE DIAGNOSES: Obesity with BMI 39; dyslipidemia; and obstructive sleep apnea, suspected. PRIMARY PROCEDURE/OPERATION: Cardiac catheterization was performed by Dr. Wolf, and the patient is found with 90% stenosis in mid LAD, 90% stenosis in 1st diagonal, 90% stenosis in 2nd diagonal, and mid RCA with 40% stenosis. Echocardiography showed EF 10% to 15%. SIGNIFICANT LABORATORY DATA: WBC 9.3, hemoglobin 15.0, and platelets 316. Sodium 143, potassium 3.4, BUN 16, creatinine 1.06, and calcium 9.2. BNP 1340. LDL 176. TSH 1.19. Urinalysis unremarkable. DISCHARGE MEDICATIONS: 1. Allopurinol 100 mg daily. 2. Aspirin 81 mg daily. 3. Lipitor 40 mg p.o. at bedtime. 4. Coreg 6.25 mg b.i.d. 5. Lasix 40 mg p.o. b.i.d. 6. Entresto 1 tablet p.o. b.i.d. 7. Aldactone 50 mg daily. CONTRAINDICATION: None. CODE STATUS: Full code. INPATIENT FLOAT NURSE: Cardiology Group was following while in the hospital. Dr. Perkins was consulted for CABG evaluation. TEST RESULTS PENDING ON DISCHARGE: None. ALLERGIES: NO KNOWN DRUG ALLERGIES. DISCHARGE PLAN: Posthospital, the patient will follow up with Dr. Wolf as instructed. The patient will follow up with primary care physician in 1 week. The patient will follow up as an outpatient basis. He will follow up with heart failure clinic. HOSPITAL COURSE: A 53-year-old male with above-mentioned medical problem, who was admitted by Dr. Early. Please see her H and P for further details. The patient was admitted for increasing shortness of breath, orthopnea, PND, and leg swelling. His presentation was consistent with CHF exacerbation. Echocardiography confirmed very low EF with EF 10% to 15%. Cardiology did cardiac catheterization for ischemic workup and found with severe coronary artery disease. The patient was not a candidate for any CABG based on cardiovascular surgeon evaluation. This patient was having obstructive sleep apnea symptoms with nocturnal hypoxia, that is why oxygen was arranged with the help of case management. The patient was optimally treated medically with the above-mentioned medication. The patient was hemodynamically stable. His CHF is improved, and he is on room air during daytime. Heart failure education and medication compliance education were given. The patient will follow up with Cardiology as well as Heart Failure Clinic. All new medication prescription sent to his pharmacy. The patient is medically stable for discharge. The patient is seen and examined at bedside today. Please see my progress note from today for further detail. Job ID: [id number]
[2018-11-14] MEDS: Atorvastatin Calcium 40 MG TAB PO SCH (19:40)
[2018-11-14 20:01] VITALS: BP 120/75
[2018-11-15] MEDS ORDERED: Sacubitril 49 MG/Valsartan 51 MG TABLET PO SCH (09:00)
[2018-11-15] MEDS ORDERED: Furosemide 40 MG TAB PO SCH (09:00)
== END 2018-11-14 19:59 | disposition home or self-care (01) | DRG 286 ==
LOC: 2NO 12:47
PROVIDERS: ADMIT Internal Medicine; ATTEND Internal Medicine
PROC: 4A023N7 Measurement of Cardiac Sampling and Pressure, Left Heart, Percutaneous Approach (ICD-10-PCS; principal; 2018-11-12)
PROC: B2111ZZ Fluoroscopy of Multiple Coronary Arteries using Low Osmolar Contrast (ICD-10-PCS; 2018-11-12)
PROC: B2151ZZ Fluoroscopy of Left Heart using Low Osmolar Contrast (ICD-10-PCS; 2018-11-12)
DX: I11.0 Hypertensive heart disease with heart failure (principal); I50.21 Acute systolic (congestive) heart failure; I24.8 Other forms of acute ischemic heart disease; E66.9 Obesity, unspecified; Z68.33 Body mass index [BMI] 33.0-33.9, adult; I25.5 Ischemic cardiomyopathy; I25.10 Atherosclerotic heart disease of native coronary artery without angina pectoris; E87.6 Hypokalemia; E79.0 Hyperuricemia without signs of inflammatory arthritis and tophaceous disease; E78.5 Hyperlipidemia, unspecified; G47.33 Obstructive sleep apnea (adult) (pediatric); Z96.653 Presence of artificial knee joint, bilateral
CPT/HCPCS: 36415; 80048; 80061; 81001; 83735; 83880; 84443; 84484; 84550; 85025; 93306; 93458; 93798; 99152; C1769; J1644; J1650; J1940; J2250

== ENCOUNTER 2022-07-12 00:25 | Inpatient (IN) | payer OTHER, SELFPAY ==
[2022-07-12 01:18] LABS: #Basophils 0.1 thou/uL (0.0-0.2); #Lymphocytes 1.5 thou/uL (1.20-3.40); #Monocytes 0.6 thou/uL (0.11-0.59); %Basophils 0.8 % (0.0-1.0); %Eosinophils 0.5 % (0.0-10.0); %Lymphocytes 18.1 % (21.0-51.0); %Monocytes 7.1 % (0.0-10.0); %Neutrophils 73.5 % (42.0-75.0); Hemoglobin 15.6 g/dL (14.0-18.0); Mean Corpuscular HGB CONC 31.8 g/dL (32.0-36.0); Mean Corpuscular Hemoglobin 29.7 pg (27.0-31.0); Mean Corpuscular Volume 93.4 fL (78.0-98.0); Mean Platelet Volume 7.5 fL (7.4-10.4); Platelet Count 258 thou/uL (130-400); RBC Distribution Width 13.4 % (11.5-14.5); Red Blood Cell (RBC) Count 5.23 mill/uL (4.70-6.10); White Blood Cell (WBC) Count 8.2 thou/uL (4.8-10.8)
[2022-07-12 01:40] LABS: ALT (SGPT) 35 U/L (8-55); AST (SGOT) 23 U/L (5-34); Albumin 3.9 g/dL (3.5-5.0); Alkaline Phosphatase 68 U/L (40-110); Anion Gap 12 mmol/L (10-20); BUN (Urea Nitrogen) 15 mg/dL (8.4-25.7); Calc. Creatinine Clearance 0 mL/min (70-130); Calcium 8.9 mg/dL (7.8-10.44); Carbon Dioxide 29 mmol/L (22-29); Chloride 104 mmol/L (98-107); Estimated GFR 56; Globulin 2.9 g/dL (2.4-3.5); Glucose 128 mg/dL (70-105); Lipase 25 U/L (8-78); Potassium 3.1 mmol/L (3.5-5.1); Protein, Total 6.8 g/dL (6.0-8.3); Sodium 142 mmol/L (136-145)
[2022-07-12 02:03] LABS: CKMB 2.3 ng/mL (0-6.6)
[2022-07-12] MEDS ORDERED: Potassium Chloride 20 MEQ TAB ONE (02:49)
[2022-07-12] MEDS ORDERED: Aspirin Chewable 81 MG TAB ONE ×2 (02:49→09:40)
[2022-07-12] MEDS ORDERED: Ondansetron PF 4 MG/2 ML Vial IVP PRN (03:56)
[2022-07-12] MEDS ORDERED: Acetaminophen 325 MG TAB PO PRN (03:56)
[2022-07-12 05:32] LABS: SARS-CoV-2 NAA Rapid Test Not Detected (NotDetected)
[2022-07-12 05:53] VITALS: BMI 25.0
[2022-07-12 06:09] LABS: Troponin I 0.145 ng/mL (< 0.028)
[2022-07-12 06:11] LABS: Hemoglobin A1c 5.4 % (4.0-6.0)
[2022-07-12] MEDS ORDERED: Furosemide 40 MG/4 ML VIAL ONE ×2 (06:14→13:51)
[2022-07-12] MEDS: Furosemide 40 MG/4 ML VIAL SLOW IVP SCH ×2 (06:25→13:52)
[2022-07-12 06:44] LABS: Bilirubin Negative (Negative); Blood, Urine Negative (Negative); Clarity Clear (Clear); Glucose, Urine (Dipstick) Normal (Negative); Ketone, Urine Negative (Negative); Leukocyte Negative Leu/uL (Negative); Nitrite Negative (Negative); Protein, Urine (Dipstick) 10 mg/dL (Neg-Trace)
[2022-07-12 07:06] LABS: Specific Gravity, Urine 1.054 (1.002-1.036)
[2022-07-12] MEDS ORDERED: Enoxaparin Sodium 40 MG/0.4 ML SYRINGE ONE ×2 (08:12→09:40)
[2022-07-12] MEDS ORDERED: Iopamidol 370 76% 100 ML VIAL ONE (08:30)
[2022-07-12] MEDS ORDERED: Carvedilol 6.25 MG TAB PO SCH ×2 (09:00)
[2022-07-12] MEDS ORDERED: Aspirin Chewable 81 MG TAB PO SCH (09:00)
[2022-07-12] MEDS ORDERED: Lisinopril 5 MG TAB PO SCH (09:00)
[2022-07-12 10:03] LABS: Troponin I 0.137 ng/mL (< 0.028)
[2022-07-12] MEDS: Allopurinol 100 MG TAB PO SCH ×2 (10:41→10:48)
[2022-07-12] MEDS: Aspirin Chewable 81 MG TAB PO SCH (10:41)
[2022-07-12] MEDS: Spironolactone 25 MG TAB PO SCH (10:48)
[2022-07-12] MEDS: Enoxaparin Sodium 40 MG/0.4 ML SYRINGE SC SCH (10:50)
[2022-07-12] MEDS: Guaifenesin DM 100-10/5 ML UDCUP PO PRN ×2 (11:43→20:54)
[2022-07-12] MEDS: Carvedilol 6.25 MG TAB PO SCH (16:59)
[2022-07-12] MEDS: Atorvastatin Calcium 40 MG TAB PO SCH (20:51)
[2022-07-12] MEDS ORDERED: Potassium Chloride 20 MEQ TAB PO SCH (21:00)
[2022-07-13] MEDS: Guaifenesin DM 100-10/5 ML UDCUP PO PRN ×4 (03:50→21:02)
[2022-07-13 05:15] LABS: #Basophils 0.1 thou/uL (0.0-0.2); #Eosinphils 0.1 thou/uL (0.0-0.7); #Lymphocytes 1.5 thou/uL (1.20-3.40); #Monocytes 0.7 thou/uL (0.11-0.59); #Neutrophils 4.6 thou/uL (1.40-6.50); %Basophils 0.9 % (0.0-1.0); %Eosinophils 1.2 % (0.0-10.0); %Lymphocytes 21.8 % (21.0-51.0); %Monocytes 9.7 % (0.0-10.0); %Neutrophils 66.4 % (42.0-75.0); Hemoglobin 15.6 g/dL (14.0-18.0); Mean Corpuscular HGB CONC 30.9 g/dL (32.0-36.0); Mean Corpuscular Hemoglobin 29.2 pg (27.0-31.0); Mean Corpuscular Volume 94.7 fL (78.0-98.0); Mean Platelet Volume 7.7 fL (7.4-10.4); Platelet Count 230 thou/uL (130-400); RBC Distribution Width 13.4 % (11.5-14.5); Red Blood Cell (RBC) Count 5.33 mill/uL (4.70-6.10)
[2022-07-13 05:40] LABS: ALT (SGPT) 30 U/L (8-55); AST (SGOT) 22 U/L (5-34); Albumin 3.6 g/dL (3.5-5.0); Alkaline Phosphatase 68 U/L (40-110); Anion Gap 13 mmol/L (10-20); BUN (Urea Nitrogen) 16 mg/dL (8.4-25.7); Bilirubin, Direct 0.7 mg/dL (0.1-0.3); Calc. Creatinine Clearance 140 mL/min (70-130); Carbon Dioxide 27 mmol/L (22-29); Cardiac Risk 7.7 (Less than 4.5); Chloride 105 mmol/L (98-107); Cholesterol 208 mg/dl (< 200 Desired); Estimated GFR 80; Glucose 125 mg/dL (70-105); HDL Cholesterol 27 mg/dL (>60 Neg Risk); LDL Cholesterol, Calculated 153 mg/dL; Magnesium 2.1 mg/dL (1.6-2.6); Potassium 3.4 mmol/L (3.5-5.1); Protein, Total 6.4 g/dL (6.0-8.3); Sodium 142 mmol/L (136-145); Triglycerides 142 mg/dL (Less than 150)
[2022-07-13] MEDS: Furosemide 40 MG/4 ML VIAL SLOW IVP SCH ×2 (05:45→14:25)
[2022-07-13] MEDS ORDERED: Potassium Chloride 20 MEQ TAB PO SCH (08:00)
[2022-07-13] MEDS: Spironolactone 25 MG TAB PO SCH (08:47)
[2022-07-13] MEDS: Aspirin Chewable 81 MG TAB PO SCH (08:47)
[2022-07-13] MEDS: Carvedilol 6.25 MG TAB PO SCH ×2 (08:48→18:35)
[2022-07-13] MEDS: Empagliflozin 10 MG TAB PO SCH (08:48)
[2022-07-13] MEDS: Enoxaparin Sodium 40 MG/0.4 ML SYRINGE SC SCH (08:49)
[2022-07-13] MEDS: Allopurinol 100 MG TAB PO SCH (08:54)
[2022-07-13] MEDS: Atorvastatin Calcium 40 MG TAB PO SCH (20:59)
[2022-07-14] MEDS: Guaifenesin DM 100-10/5 ML UDCUP PO PRN ×4 (04:20→20:24)
[2022-07-14 05:25] LABS: Anion Gap 13 mmol/L (10-20); BUN (Urea Nitrogen) 15 mg/dL (8.4-25.7); Calc. Creatinine Clearance 95 mL/min (70-130); Calcium 8.8 mg/dL (7.8-10.44); Carbon Dioxide 26 mmol/L (22-29); Chloride 105 mmol/L (98-107); Estimated GFR 64; Glucose 166 mg/dL (70-105); Potassium 3.5 mmol/L (3.5-5.1); Sodium 140 mmol/L (136-145)
[2022-07-14] MEDS ORDERED: Potassium Chloride 20 MEQ TAB PO SCH (06:00)
[2022-07-14] MEDS: Furosemide 40 MG/4 ML VIAL SLOW IVP SCH ×2 (06:17→15:22)
[2022-07-14] MEDS: Allopurinol 100 MG TAB PO SCH (08:53)
[2022-07-14] MEDS: Enoxaparin Sodium 40 MG/0.4 ML SYRINGE SC SCH (08:53)
[2022-07-14] MEDS: Carvedilol 6.25 MG TAB PO SCH ×2 (08:53→18:20)
[2022-07-14] MEDS: Empagliflozin 10 MG TAB PO SCH (08:53)
[2022-07-14] MEDS: Aspirin Chewable 81 MG TAB PO SCH (08:53)
[2022-07-14] MEDS: Spironolactone 25 MG TAB PO SCH (08:53)
[2022-07-14] MEDS ORDERED: Albuterol Sulfate 1.25 MG/3 ML NEB NEB PRN (09:27)
[2022-07-14] MEDS ORDERED: Carvedilol 6.25 MG TAB PO SCH (17:45)
[2022-07-14] MEDS: Atorvastatin Calcium 40 MG TAB PO SCH (20:24)
[2022-07-15] MEDS ORDERED: Furosemide 40 MG TAB PO SCH ×2 (07:30→09:00)
[2022-07-15] MEDS: Aspirin Chewable 81 MG TAB PO SCH (08:27)
[2022-07-15] MEDS: Carvedilol 6.25 MG TAB PO SCH ×2 (08:28→17:28)
[2022-07-15] MEDS: Allopurinol 100 MG TAB PO SCH (08:28)
[2022-07-15] MEDS: Empagliflozin 10 MG TAB PO SCH (08:29)
[2022-07-15] MEDS: Enoxaparin Sodium 40 MG/0.4 ML SYRINGE SC SCH (08:29)
[2022-07-15] MEDS: Spironolactone 25 MG TAB PO SCH (08:30)
[2022-07-15] MEDS: Guaifenesin DM 100-10/5 ML UDCUP PO PRN ×2 (08:31→17:48)
[2022-07-15 15:46] VITALS: BP 104/74; TEMP 97.7
[2022-07-15] MEDS ORDERED: guaiFENesin/DM ER PO SCH (21:00)
== END 2022-07-15 19:06 | disposition home or self-care (01) | DRG 280 ==
LOC: ERS 00:25 → ERHOLD 03:42 → OBSVTOIN 11:44 → 2SW 16:24
PROVIDERS: ADMIT Internal Medicine; ATTEND Internal Medicine
DX: I13.0 Hypertensive heart and chronic kidney disease with heart failure and stage 1 through stage 4 chronic kidney disease, or unspecified chronic kidney disease (principal); I50.23 Acute on chronic systolic (congestive) heart failure; I21.A1 Myocardial infarction type 2; I47.2 Ventricular tachycardia; I25.10 Atherosclerotic heart disease of native coronary artery without angina pectoris; Z20.822 Contact with and (suspected) exposure to COVID-19; E87.6 Hypokalemia; E78.5 Hyperlipidemia, unspecified; I42.9 Cardiomyopathy, unspecified; E66.9 Obesity, unspecified; N18.9 Chronic kidney disease, unspecified; Z79.82 Long term (current) use of aspirin; Z91.14 Patient's other noncompliance with medication regimen; Z79.899 Other long term (current) drug therapy; Z98.890 Other specified postprocedural states; Z68.33 Body mass index [BMI] 33.0-33.9, adult
CPT/HCPCS: 36415; 71045; 74177; 76705; 80048; 80053; 80061; 80076; 81003; 82553; 83036; 83690; 83735; 83880; 84443; 84484; 85025; 87086; 93005; 93306; 93798; J1650; J1940; Q9967; U0002